=== PATIENT | male | born 1965 | race Caucasian/White ===

== ENCOUNTER 2016-06-30 01:24 | Inpatient (IN) | payer MEDICAID ==
[~2016-06-30] VITALS: Ht 170.2 cm; Wt 59.9 kg
[2016-06-30] VITALS (8 sets, daily range): BP systolic 137–158; BP diastolic 76–90
[~2016-06-30 01:24] MED LIST: OLAN5Z PO
[2016-06-30] MEDS ORDERED: -PHARMACY VACCINE NOTE- MISC ONE ×2 (08:45)
[2016-06-30] MEDS ORDERED: INFLUENZA VIRUS VACCINE QVS 2016-17 (3YR+)/PF 60 MCG/0.5 ML SYRINGE IM ONE (08:45)
[2016-06-30] MEDS ORDERED: LORazepam 2 MG TABLET PO PRN ×3 (08:45→17:00)
[2016-06-30] MEDS ORDERED: CYANOCOBALAMIN 1,000 MCG/ML VIAL IM ONE ×2 (12:30→15:45)
[2016-06-30] MEDS ORDERED: CloNIDine HCL 0.1 MG TABLET PO PRN (12:30)
[2016-06-30] MEDS: FOLIC ACID 1 MG TABLET PO SCH (12:51)
[2016-06-30] MEDS: THIAMINE HCL 100 MG TABLET PO SCH (12:51)
[2016-06-30] MEDS ORDERED: LOPERAMIDE HCL 2 MG CAPSULE PO PRN (15:45)
[2016-06-30] MEDS ORDERED: HydrOXYzine PAMOATE 50 MG CAPSULE PO PRN (15:45)
[2016-06-30] MEDS ORDERED: FOLIC ACID 1 MG TABLET PO SCH (15:45)
[2016-06-30] MEDS ORDERED: GuaiFENesin/D-METHORPHAN [SUGAR-FREE] 200-20MG/10 ML SYRUP UDCUP PO PRN (15:45)
[2016-06-30] MEDS: MULTIVITAMINS WITH MINERALS, THERAPEUTIC TABLET PO SCH (16:39)
[2016-06-30] MEDS: LORazepam 2 MG TABLET PO SCH ×2 (16:44→20:48)
[2016-06-30] MEDS ORDERED: THIAMINE HCL 100 MG TABLET PO SCH (17:00)
[2016-06-30] MEDS: OLANZapine 5 MG TABLET PO SCH (20:47)
[2016-07-01 02:50] VITALS: BP 150/100
[2016-07-01 06:06] VITALS: BP 142/92
[2016-07-01] MEDS ORDERED: LORazepam 2 MG TABLET PO PRN ×2 (07:00)
[2016-07-01 08:30] VITALS: BP 151/91
[2016-07-01] MEDS ORDERED: LORazepam 2 MG TABLET PO SCH ×2 (09:00)
[2016-07-01] MEDS: LORazepam 2 MG TABLET PO SCH ×3 (09:02→16:39)
[2016-07-01] MEDS: THIAMINE HCL 100 MG TABLET PO SCH (09:02)
[2016-07-01] MEDS: MULTIVITAMINS WITH MINERALS, THERAPEUTIC TABLET PO SCH (09:02)
[2016-07-01] MEDS: FOLIC ACID 1 MG TABLET PO SCH (09:02)
[2016-07-01] MEDS: PANTOPRAZOLE SODIUM 40 MG DR TABLET PO SCH (09:03)
[2016-07-01] MEDS: FLUoxetine HCL 20 MG CAPSULE PO SCH (09:03)
[2016-07-01 09:10] LABS: EOSINOPHILS % (AUTO) 5.3 % (1.0-6.0); HEMATOCRIT 45.4 % (41-53); LYMPHOCYTES # (AUTO) 1.3 K/uL (1.0-4.8); MEAN CORPUSCULAR HEMOGLOBIN 29.4 pg (26.0-34.0); MEAN CORPUSCULAR HGB CONC 32.9 G/dL (31.0-37.0); MEAN CORPUSCULAR VOLUME 89 fL (80-100); MONOCYTES # (AUTO) 0.6 K/uL (0.1-1.0); MONOCYTES % (AUTO) 9.8 % (2.0-9.0); NEUTROPHILS # (AUTO) 3.8 K/uL (1.8-7.7); NEUTROPHILS % (AUTO) 61.9 % (40.0-70.0); PLATELET COUNT (AUTO) 256 K/uL (150-450); RED BLOOD CELL COUNT(AUTO) 5.08 MIL/uL (4.50-5.90); RED CELL DISTRIBUTION WIDTH 13.6 % (11.5-14.5); WHITE BLOOD COUNT (AUTO) 6.1 K/uL (4.5-11.0)
[2016-07-01] MEDS: NICOTINE 21 MG/24 HOUR PATCH TD SCH (09:10)
[2016-07-01 09:51] LABS: HEMOGLOBIN A1C 5.4 % (4.5-6.2)
[2016-07-01 10:30] VITALS: BP 137/85
[2016-07-01 10:47] LABS: ALANINE AMINOTRANSFERASE 39 U/L (12-78); ANION GAP 3 mmol/L (8-16); ASPARTATE AMINOTRANSFERASE 50 U/L (15-37); BILIRUBIN,TOTAL 0.4 mg/dL (0.1-1.0); CARBON DIOXIDE 34 mmol/L (22-29); CHLORIDE 99 mmol/L (98-107); CREATININE 0.68 mg/dL (0.60-1.30); GLOMERULAR FILTR. RATE CALC > 60 mL/min (>60); POTASSIUM 4.2 mmol/L (3.5-5.1); SODIUM SERUM 136 mmol/L (136-145); THYROID STIMULATING HORMONE 1.19 uIU/mL (0.36-3.74); TOTAL PROTEIN, SERUM 6.8 g/dL (6.4-8.2); UREA NITROGEN, BLOOD 12 mg/dL (7-18)
[2016-07-01 10:49] LABS: APPEARANCE,URINE CLOUDY (CLEAR); GLUCOSE, URINE (UA) NEGATIVE (NEGATIVE); KETONES,URINE NEGATIVE (NEGATIVE); LEUKOCYTE ESTERASE ,URINE NEGATIVE (NEGATIVE); OCCULT BLOOD,URINE NEGATIVE (NEGATIVE); PROTEIN,URINE TRACE (NEGATIVE)
[2016-07-01 11:01] LABS: ADD UA MICROSCOPIC YES
[2016-07-01 11:04] LABS: RBC,URINE None Seen /HPF (0-2); WBC,URINE 0-2 /HPF (0-5)
[2016-07-01 11:05] LABS: CALCIUM OXALATE CRYSTALS,UR Many /LPF (None Seen)
[2016-07-01 12:58] VITALS: BP 133/80
[2016-07-01 16:00] VITALS: BP_SYST 130; BP_SYST 131; BP_DIAS 72; BP_DIAS 75
[2016-07-01] MEDS: OLANZapine 5 MG TABLET PO SCH (20:49)
[2016-07-02] MEDS ORDERED: LORazepam 1 MG TABLET PO PRN
[2016-07-02 01:34] VITALS: BP 121/87
[2016-07-02] MEDS: NICOTINE 21 MG/24 HOUR PATCH TD SCH (09:10)
[2016-07-02] MEDS: LORazepam 2 MG TABLET PO SCH ×3 (09:10→16:09)
[2016-07-02] MEDS: FLUoxetine HCL 20 MG CAPSULE PO SCH (09:10)
[2016-07-02] MEDS: MULTIVITAMINS WITH MINERALS, THERAPEUTIC TABLET PO SCH (09:11)
[2016-07-02] MEDS: THIAMINE HCL 100 MG TABLET PO SCH (09:11)
[2016-07-02] MEDS: FOLIC ACID 1 MG TABLET PO SCH (09:11)
[2016-07-02] MEDS: PANTOPRAZOLE SODIUM 40 MG DR TABLET PO SCH (09:11)
[2016-07-02 09:12] VITALS: BP 136/91
[2016-07-02 16:11] VITALS: BP 133/89
[2016-07-02] MEDS: OLANZapine 5 MG TABLET PO SCH (20:15)
[2016-07-03 00:25] VITALS: BP 105/65
[2016-07-03] MEDS ORDERED: LORazepam 1 MG TABLET PO PRN (07:00)
[2016-07-03 08:23] VITALS: BP 132/78
[2016-07-03] MEDS ORDERED: LORazepam 1 MG TABLET PO SCH (09:00)
[2016-07-03] MEDS ORDERED: LORazepam 2 MG TABLET PO ONE (09:00)
[2016-07-03] MEDS: FOLIC ACID 1 MG TABLET PO SCH (09:52)
[2016-07-03] MEDS: THIAMINE HCL 100 MG TABLET PO SCH (09:52)
[2016-07-03] MEDS: MULTIVITAMINS WITH MINERALS, THERAPEUTIC TABLET PO SCH (09:52)
[2016-07-03] MEDS: LORazepam 2 MG TABLET PO SCH (09:52)
[2016-07-03] MEDS: FLUoxetine HCL 20 MG CAPSULE PO SCH (09:52)
[2016-07-03] MEDS: PANTOPRAZOLE SODIUM 40 MG DR TABLET PO SCH (09:52)
[2016-07-03] MEDS: NICOTINE 21 MG/24 HOUR PATCH TD SCH (10:06)
[2016-07-03 16:06] VITALS: BP 137/85
[2016-07-03] MEDS: OLANZapine 5 MG TABLET PO SCH (20:40)
[2016-07-04 02:34] VITALS: BP 128/66
[2016-07-04] MEDS ORDERED: LORazepam 1 MG TABLET PO PRN (07:00)
[2016-07-04] MEDS: PANTOPRAZOLE SODIUM 40 MG DR TABLET PO SCH (09:02)
[2016-07-04] MEDS: FOLIC ACID 1 MG TABLET PO SCH (09:02)
[2016-07-04] MEDS: FLUoxetine HCL 20 MG CAPSULE PO SCH (09:02)
[2016-07-04] MEDS: NICOTINE 21 MG/24 HOUR PATCH TD SCH (09:02)
[2016-07-04] MEDS: THIAMINE HCL 100 MG TABLET PO SCH (09:02)
[2016-07-04] MEDS: MULTIVITAMINS WITH MINERALS, THERAPEUTIC TABLET PO SCH (09:02)
[2016-07-04 09:28] VITALS: BP 140/98
[2016-07-04 11:25] VITALS: BP 139/83
[2016-07-04 18:20] VITALS: BP 129/87
[2016-07-04] MEDS: OLANZapine 10 MG TABLET PO SCH (20:41)
[2016-07-05 00:30] VITALS: BP 123/89
[2016-07-05 08:36] VITALS: BP 143/81
[2016-07-05] MEDS: MULTIVITAMINS WITH MINERALS, THERAPEUTIC TABLET PO SCH (09:49)
[2016-07-05] MEDS: THIAMINE HCL 100 MG TABLET PO SCH (09:49)
[2016-07-05] MEDS: FOLIC ACID 1 MG TABLET PO SCH (09:49)
[2016-07-05] MEDS: PANTOPRAZOLE SODIUM 40 MG DR TABLET PO SCH (09:49)
[2016-07-05] MEDS: FLUoxetine HCL 20 MG CAPSULE PO SCH (09:49)
[2016-07-05] MEDS: NICOTINE 21 MG/24 HOUR PATCH TD SCH (09:50)
[2016-07-05 11:17] LABS: HEPATITIS Bs ANTIGEN SCREEN P Negative (Negative); HEPATITIS C AB SCREEN >11.0 s/co ratio (0.0-0.9)
[2016-07-05] MEDS: OLANZapine 10 MG TABLET PO SCH (20:25)
[2016-07-05 21:16] VITALS: BP 128/82
[2016-07-06 06:39] VITALS: BP 138/80
[2016-07-06] MEDS: PANTOPRAZOLE SODIUM 40 MG DR TABLET PO SCH (08:45)
[2016-07-06] MEDS: NICOTINE 21 MG/24 HOUR PATCH TD SCH (08:45)
[2016-07-06] MEDS: MULTIVITAMINS WITH MINERALS, THERAPEUTIC TABLET PO SCH (08:45)
[2016-07-06] MEDS: FLUoxetine HCL 20 MG CAPSULE PO SCH (08:45)
[2016-07-06] MEDS: THIAMINE HCL 100 MG TABLET PO SCH (08:45)
[2016-07-06] MEDS: FOLIC ACID 1 MG TABLET PO SCH (08:45)
[2016-07-06 08:47] VITALS: BP 137/87
[2016-07-06] MEDS ORDERED: FLUO-191 PO (10:08)
[2016-07-06] MEDS ORDERED: PANT40TA25 PO (10:09)
== END 2016-07-06 14:30 | disposition home or self-care (01) | DRG 750 ==
LOC: B2S 09:03 → EDSTATUS 09:42
PROVIDERS: ADMIT Psychiatry & Neurology Child & Adolescent Psychiatry; ATTEND Psychiatry & Neurology Child & Adolescent Psychiatry
DX: F25.1 Schizoaffective disorder, depressive type (principal); R45.851 Suicidal ideations; F15.20 Other stimulant dependence, uncomplicated; I10 Essential (primary) hypertension; J45.909 Unspecified asthma, uncomplicated; F10.20 Alcohol dependence, uncomplicated; F17.200 Nicotine dependence, unspecified, uncomplicated; Z88.0 Allergy status to penicillin; Z59.0 Homelessness; Z28.21 Immunization not carried out because of patient refusal; Z79.899 Other long term (current) drug therapy; Z91.5 Personal history of self-harm; Z86.73 Personal history of transient ischemic attack (TIA), and cerebral infarction without residual deficits; Z80.9 Family history of malignant neoplasm, unspecified
CPT/HCPCS: 80074; 80307; 83036; 84439; 84443; 90471; J3420

== ENCOUNTER 2016-07-28 10:51 | Inpatient (IN) | payer MEDICAID, OTHER ==
[~2016-07-28] VITALS: Ht 170.2 cm; Wt 56.0 kg
[~2016-07-28 10:51] MED LIST changes: +FLUO-191 PO; +PANT40TA25 PO
[2016-07-28] MEDS ORDERED: LORazepam 2 MG/ML VIAL IM ONE (11:15)
[2016-07-28] MEDS ORDERED: HALOPERIDOL LACTATE 5 MG/ML VIAL IM ONE (11:15)
[2016-07-28] MEDS ORDERED: DiphenhydrAMINE HCL 50 MG/ML VIAL IM ONE (11:15)
[2016-07-28 11:35] LABS: BASOPHILS # (AUTO) 0.09 K/uL (0.00-0.20); BASOPHILS % (AUTO) 1.4 % (0.0-2.0); EOSINOPHILS # (AUTO) 0.25 K/uL (0.00-0.70); EOSINOPHILS % (AUTO) 3.93 % (1.0-6.0); HEMOGLOBIN 13.9 g/dL (13.5-17.5); LYMPHOCYTES # (AUTO) 1.9 K/uL (1.0-4.8); MEAN CORPUSCULAR HGB CONC 33.9 G/dL (31.0-37.0); MEAN CORPUSCULAR VOLUME 88 fL (80-100); MONOCYTES # (AUTO) 0.8 K/uL (0.1-1.0); MONOCYTES % (AUTO) 13.4 % (2.0-9.0); NEUTROPHILS # (AUTO) 3.2 K/uL (1.8-7.7); NEUTROPHILS % (AUTO) 51.3 % (40.0-70.0); PLATELET COUNT (AUTO) 262 K/uL (150-450); RED BLOOD CELL COUNT(AUTO) 4.64 MIL/uL (4.50-5.90); RED CELL DISTRIBUTION WIDTH 13.6 % (11.5-14.5); WHITE BLOOD COUNT (AUTO) 6.3 K/uL (4.5-11.0)
[2016-07-28 11:43] LABS: ANION GAP 7 mmol/L (8-16); CALCIUM, TOTAL 8.5 mg/dL (8.8-10.5); CARBON DIOXIDE 30 mmol/L (22-29); CHLORIDE 103 mmol/L (98-107); CREATININE 0.67 mg/dL (0.60-1.30); GLOMERULAR FILTR. RATE CALC > 60 mL/min (>60); POTASSIUM 4.2 mmol/L (3.5-5.1); SODIUM SERUM 140 mmol/L (136-145); UREA NITROGEN, BLOOD 14 mg/dL (7-18)
[2016-07-28 11:49] LABS: ALANINE AMINOTRANSFERASE 43 U/L (12-78); ALBUMIN 3.6 g/dL (3.4-5.0); ASPARTATE AMINOTRANSFERASE 49 U/L (15-37); BILIRUBIN,TOTAL 0.3 mg/dL (0.1-1.0); TOTAL PROTEIN, SERUM 7.7 g/dL (6.4-8.2)
[2016-07-28] MEDS ORDERED: LORazepam 2 MG TABLET PO PRN (14:45)
[2016-07-28] MEDS ORDERED: ZOLPIDEM TARTRATE 10 MG TABLET PO PRN (14:45)
[2016-07-28] MEDS ORDERED: HALOPERIDOL 5 MG TABLET PO PRN (14:45)
[2016-07-28] MEDS ORDERED: OLAN10TA3 PO (14:52)
[2016-07-28 16:45] VITALS: BP 149/79
[2016-07-28 17:45] VITALS: BP 124/90
[2016-07-28] MEDS ORDERED: INFLUENZA VIRUS VACCINE QVS 2016-17 (3YR+)/PF 60 MCG/0.5 ML SYRINGE IM ONE (18:15)
[2016-07-28 18:45] VITALS: BP 127/74
[2016-07-28 19:45] VITALS: BP 140/83
[2016-07-28] MEDS: OLANZapine 10 MG RAPDIS TABLET PO SCH (20:23)
[2016-07-28 23:46] VITALS: BP 126/63
[2016-07-29] VITALS (7 sets, daily range): BP systolic 112–131; BP diastolic 64–80
[2016-07-29] MEDS ORDERED: LORazepam 2 MG TABLET PO PRN (07:00)
[2016-07-29] MEDS: LORazepam 2 MG TABLET PO SCH ×4 (09:24→20:32)
[2016-07-29] MEDS: FLUoxetine HCL 20 MG CAPSULE PO SCH (09:24)
[2016-07-29] MEDS: PANTOPRAZOLE SODIUM 40 MG DR TABLET PO SCH (09:24)
[2016-07-29] MEDS: NICOTINE 21 MG/24 HOUR PATCH TD SCH (09:42)
[2016-07-29] MEDS: OLANZapine 10 MG RAPDIS TABLET PO SCH (20:32)
[2016-07-30 06:52] VITALS: BP 117/72
[2016-07-30 08:40] VITALS: BP 123/74
[2016-07-30 08:41] VITALS: BP 123/74
[2016-07-30] MEDS: LORazepam 2 MG TABLET PO SCH ×4 (09:35→21:10)
[2016-07-30] MEDS: PANTOPRAZOLE SODIUM 40 MG DR TABLET PO SCH (09:35)
[2016-07-30] MEDS: FLUoxetine HCL 20 MG CAPSULE PO SCH (09:35)
[2016-07-30] MEDS: NICOTINE 21 MG/24 HOUR PATCH TD SCH (09:35)
[2016-07-30 16:00] VITALS: BP 121/84
[2016-07-30 18:22] VITALS: BP 121/84
[2016-07-30] MEDS: OLANZapine 10 MG RAPDIS TABLET PO SCH (21:10)
[2016-07-31 06:24] VITALS: BP 106/64
[2016-07-31] MEDS ORDERED: LORazepam 1 MG TABLET PO PRN (07:00)
[2016-07-31 08:15] VITALS: BP 132/80
[2016-07-31] MEDS: PANTOPRAZOLE SODIUM 40 MG DR TABLET PO SCH (09:53)
[2016-07-31] MEDS: LORazepam 1 MG TABLET PO SCH ×4 (09:53→20:34)
[2016-07-31] MEDS: FLUoxetine HCL 20 MG CAPSULE PO SCH (09:53)
[2016-07-31] MEDS: NICOTINE 21 MG/24 HOUR PATCH TD SCH (09:53)
[2016-07-31 16:13] VITALS: BP 114/80
[2016-07-31] MEDS: OLANZapine 10 MG RAPDIS TABLET PO SCH (20:34)
[2016-08-01 06:55] VITALS: BP 111/78
[2016-08-01] MEDS ORDERED: LORazepam 1 MG TABLET PO PRN (07:00)
[2016-08-01 08:15] VITALS: BP 155/83
[2016-08-01] MEDS: NICOTINE 21 MG/24 HOUR PATCH TD SCH (09:29)
[2016-08-01] MEDS: PANTOPRAZOLE SODIUM 40 MG DR TABLET PO SCH (09:29)
[2016-08-01] MEDS: FLUoxetine HCL 20 MG CAPSULE PO SCH (09:29)
[2016-08-01 16:00] VITALS: BP 127/76
[2016-08-01] MEDS: OLANZapine 10 MG RAPDIS TABLET PO SCH (20:34)
[2016-08-01] MEDS ORDERED: OLAN5Z PO (22:18)
[2016-08-02 00:47] VITALS: BP 120/79
[2016-08-02 00:51] VITALS: BP 120/79
[2016-08-02] MEDS: FLUoxetine HCL 20 MG CAPSULE PO SCH (09:00)
[2016-08-02] MEDS: NICOTINE 21 MG/24 HOUR PATCH TD SCH (09:00)
[2016-08-02] MEDS: PANTOPRAZOLE SODIUM 40 MG DR TABLET PO SCH (09:00)
== END 2016-08-02 07:45 | disposition home or self-care (01) | DRG 750 ==
LOC: EMS 10:52 → EEVIPCON 10:52 → B3A 15:51
PROVIDERS: ADMIT Psychiatry & Neurology Psychiatry; ATTEND Psychiatry & Neurology Child & Adolescent Psychiatry
DX: F25.1 Schizoaffective disorder, depressive type (principal); F31.64 Bipolar disorder, current episode mixed, severe, with psychotic features; I10 Essential (primary) hypertension; J44.9 Chronic obstructive pulmonary disease, unspecified; B19.20 Unspecified viral hepatitis C without hepatic coma; F15.10 Other stimulant abuse, uncomplicated; J45.909 Unspecified asthma, uncomplicated; F17.210 Nicotine dependence, cigarettes, uncomplicated; F10.239 Alcohol dependence with withdrawal, unspecified; K21.9 Gastro-esophageal reflux disease without esophagitis; Y90.6 Blood alcohol level of 120-199 mg/100 ml; Z86.73 Personal history of transient ischemic attack (TIA), and cerebral infarction without residual deficits; Z59.0 Homelessness; Z91.5 Personal history of self-harm; Z88.0 Allergy status to penicillin; Z79.899 Other long term (current) drug therapy; Z71.6 Tobacco abuse counseling; Z71.41 Alcohol abuse counseling and surveillance of alcoholic; Z28.21 Immunization not carried out because of patient refusal
CPT/HCPCS: 87081; 96372; 99285; 99406; G0480; J1200; J1630; J2060

== ENCOUNTER 2024-03-04 18:56 | Emergency (ER) | payer MEDICAID ==
[~2024-03-04] VITALS: Ht 170.2 cm; Wt 56.8 kg
[~2024-03-04 18:56] MED LIST changes: +FLUO-177 PO; -FLUO-191 PO; +OLAN5TAB94 PO; -OLAN5Z PO; +PANT-31 PO; -PANT40TA25 PO
[2024-03-04 19:21] VITALS: TEMP 98.3
[2024-03-04 20:47] VITALS: BP 105/70; PULSE 79; RESP 20; O2SAT 96
[2024-03-04] MEDS: OLANZapine 5 MG RAPDIS TABLET PO ONE (21:18)
[2024-03-04] MEDS: PredniSONE 20 MG TABLET PO ONE (21:19)
[2024-03-04] MEDS ORDERED: DIPH50CA37 PO (22:35)
[2024-03-04] MEDS ORDERED: PRED-554 PO (22:35)
== END 2024-03-04 22:57 | disposition home or self-care (01) ==
LOC: EMS 18:56
DX: T78.40XA Allergy, unspecified, initial encounter (principal); L30.9 Dermatitis, unspecified; F20.9 Schizophrenia, unspecified; F31.9 Bipolar disorder, unspecified; F12.90 Cannabis use, unspecified, uncomplicated; F15.90 Other stimulant use, unspecified, uncomplicated; Z59.00 Homelessness unspecified; Z88.0 Allergy status to penicillin; Z98.890 Other specified postprocedural states; Z91.030 Bee allergy status
CPT/HCPCS: 99283; J7512

== ENCOUNTER 2024-03-30 11:39 | Emergency (ER) | payer MEDICAID ==
[~2024-03-30] VITALS: Ht 170.2 cm; Wt 58.2 kg
[~2024-03-30 11:39] MED LIST changes: +DIPH50CA37 PO; -FLUO-177 PO; -OLAN5TAB94 PO; -PANT-31 PO; +PRED-554 PO
[2024-03-30 12:44] VITALS: TEMP 97.6
[2024-03-30] MEDS: PredniSONE 20 MG TABLET PO ONE (12:44)
[2024-03-30] MEDS: FAMOTIDINE 20 MG TABLET PO ONE (12:44)
[2024-03-30] MEDS: DiphenhydrAMINE HCL 25 MG CAPSULE PO ONE (12:44)
[2024-03-30] MEDS ORDERED: VALB40CA2 PO (12:49)
[2024-03-30] MEDS ORDERED: MIRT45TA90 PO (12:49)
[2024-03-30] MEDS ORDERED: OLAN20TA20 PO (12:49)
[2024-03-30 13:02] LABS: BASOPHILS % (AUTO) 1.1 % (0.0-2.0); HEMATOCRIT 42.5 % (41-53); HEMOGLOBIN 14.3 g/dL (13.5-17.5); LYMPHOCYTES # (AUTO) 1.7 K/uL (1.0-4.8); LYMPHOCYTES % (AUTO) 22.2 % (22.0-44.0); MEAN CORPUSCULAR HEMOGLOBIN 30.2 pg (26.0-34.0); MEAN CORPUSCULAR HGB CONC 33.6 G/dL (31.0-37.0); MEAN CORPUSCULAR VOLUME 90 fL (80-100); MONOCYTES # (AUTO) 0.8 K/uL (0.1-1.0); NEUTROPHILS # (AUTO) 3.7 K/uL (1.8-7.7); NEUTROPHILS % (AUTO) 47.7 % (40.0-70.0); PLATELET COUNT (AUTO) 273 K/uL (150-450); RED BLOOD CELL COUNT(AUTO) 4.73 MIL/uL (4.50-5.90); RED CELL DISTRIBUTION WIDTH 15.1 % (11.5-14.5); WHITE BLOOD COUNT (AUTO) 7.7 K/uL (4.5-11.0)
[2024-03-30 13:13] LABS: CHLORIDE 105 mmol/L (98-107); POTASSIUM 4.2 mmol/L (3.5-5.1); SODIUM SERUM 140 mmol/L (136-145); UREA NITROGEN, BLOOD 11 mg/dL (7-18)
[2024-03-30 13:52] LABS: ANION GAP 9 mmol/L (8-16); CALCIUM, TOTAL 8.8 mg/dL (8.8-10.5); CARBON DIOXIDE 26 mmol/L (22-29); CREATININE 0.63 mg/dL (0.60-1.30); GLOMERULAR FILTR. RATE CALC > 60 mL/min (>60); GLUCOSE,RANDOM 78 mg/dL (70-110)
[2024-03-30 14:00] VITALS: BP 125/85; PULSE 73; RESP 15; O2SAT 96
[2024-03-30 15:01] LABS: ALBUMIN 2.9 g/dL (3.4-5.0); BILIRUBIN,DIRECT 0.1 mg/dL (0.00-0.20); BILIRUBIN,TOTAL 0.4 mg/dL (0.1-1.0); C-REACTIVE PROTEIN QUANT 0.73 mg/dL (0.00-0.30); TOTAL PROTEIN, SERUM 6.3 g/dL (6.4-8.2)
== END 2024-03-30 16:30 | disposition home or self-care (01) ==
LOC: EMS 11:39
DX: R21 Rash and other nonspecific skin eruption (principal); F12.90 Cannabis use, unspecified, uncomplicated; F20.9 Schizophrenia, unspecified; F31.9 Bipolar disorder, unspecified; Z88.0 Allergy status to penicillin; Z91.030 Bee allergy status; Z59.00 Homelessness unspecified
CPT/HCPCS: 99284; 80048; 80076; 85025; 85651; 86140; 36415; J7512